=== PATIENT | male | born 1970 | race Caucasian/White ===

== ENCOUNTER 2017-02-08 00:29 | Observation (INO) | payer SELFPAY ==
[2017-02-08 02:05] LABS: Hematocrit 38.5 % (42.0-52.0); Mean Platelet Volume 6.6 fL (7.4-10.4); White Blood Cell (WBC) Count 7.3 thou/uL (4.8-10.8)
[2017-02-08 02:10] LABS: PTT 29.2 SEC (22.9-36.1); Prothrombin Time 13.9 SEC (12.0-14.7)
[2017-02-08] MEDS ORDERED: Fentanyl 100 MCG/2 ML VIAL ONE (02:18)
[2017-02-08 02:19] LABS: #Basophils 0.1 thou/uL (0.0-0.2); #Eosinphils 0.1 thou/uL (0.0-0.7); #Lymphocytes 2.4 thou/uL (1.20-3.40); #Monocytes 0.5 thou/uL (0.11-0.59); #Neutrophils 4.2 thou/uL (1.40-6.50); %Basophils 1.4 % (0.0-1.0); %Eosinophils 1.9 % (0.0-10.0); %Lymphocytes 32.5 % (21.0-51.0); %Monocytes 6.6 % (0.0-10.0); Macrocytosis MODERATE=16-30 cells (100X) (0-5/hpf)
[2017-02-08 02:21] LABS: ALT (SGPT) 24 U/L (8-55); AST (SGOT) 42 U/L (5-34); Alkaline Phosphatase 86 U/L (40-150); Anion Gap 12 mmol/L (10-20); BUN (Urea Nitrogen) 9 mg/dL (8.9-20.6); Bilirubin, Total 0.3 mg/dL (0.2-1.2); Calc. Creatinine Clearance 0 mL/min (70-130); Calcium 8.6 mg/dL (7.8-10.44); Carbon Dioxide 33 mmol/L (22-29); Chloride 97 mmol/L (98-107); Estimated GFR-MDRD 82; Globulin 3.1 g/dL (2.4-3.5); Protein, Total 6.4 g/dL (6.0-8.3)
[2017-02-08] MEDS ORDERED: Ketorolac Tromethamine 30 MG/ML VIAL ONE (03:05)
[2017-02-08 04:10] LABS: Troponin I Less than 0.010 ng/mL (< 0.028)
[2017-02-08] MEDS ORDERED: Acetaminophen 325 MG TAB PO PRN (04:50)
[2017-02-08 06:46] LABS: Hemoglobin A1c 5.7 % (4.0-6.0)
[2017-02-08 06:57] VITALS: BMI 41.3
--- NOTE | 2017-02-08 07:11 | HP ---
PRIMARY CARE PROVIDER: [facility]. CHIEF COMPLAINT: Chest pain. HISTORY OF PRESENT ILLNESS: Mr. Mg is a pleasant 46-year-old gentleman who came to the emergency r oom complaining of chest pain. He was getting out of his car when he slipped on some gravel and fel l. The left side of his chest hit a step. He also reports hitting the left side of his head. He i s unsure if he passed out. He thinks he may have passed out. He denies any nausea or vomiting. In terms of the pain, he reports it as constant, sharp, over the left side of his chest, nonradiatin g, 10/10, improved with fentanyl, worse with movement. He denies any nausea or vomiting. He denies any lightheadedness. REVIEW OF SYSTEMS: The following complete review of systems was negative, unless otherwise mentione d in the HPI or below: CONSTITUTIONAL: Weight loss or gain, sense of well-being, ability to conduct usual activities, exer cise tolerance. SKIN/BREAST: Rash, itching, changes in hair growth or loss, nail changes, breast lumps, tenderness, swelling, nipple discharge. EYES: Vision, double vision, tearing, blind spots, pain. ENT/MOUTH: Headaches (location, time of onset, duration, precipitating factors), vertigo, lighthead edness, injury. Vision, double vision, tearing, blind spots, pain, nose bleeding, colds, obstruction , discharge, dental difficulties, gingival bleeding, dentures, neck stiffness, pain, tenderness, mas ses in thyroid or other areas. CARDIOVASCULAR: Precordial pain, substernal distress, palpitations, syncope, dyspnea on exertion, o rthopnea, nocturnal paroxysmal dyspnea, edema, cyanosis, hypertension, heart murmurs, varicosities, phlebitis, claudication. RESPIRATORY: Pain, shortness of breath, wheezing, stridor, cough, hemoptysis, fever or night sweats . GASTROINTESTINAL: Poor appetite, dysphagia, indigestion, abdominal pain, heartburn, eructation, kimi sea, vomiting, hematemesis, jaundice, constipation, or diarrhea, abnormal stools (himanshu-colored, emmanuel y, bloody, greasy, foul smelling), flatulence, hemorrhoids, recent changes in bowel habits. GENITOURINARY: Urgency, frequency, dysuria, nocturia, hematuria, polyuria, oliguria, unusual (or ch ricky in) color of urine, stones, hesitancy, change in size of stream, dribbling, acute retention or incontinence, libido, potency. MUSCULOSKELETAL: Pain, swelling, redness or heat of muscles or joints, limitation, of motion, muscu lar weakness, atrophy, cramps. NEUROLOGIC/PSYCHIATRIC: Convulsions, paralyses, tremor, incoordination, paresthesias, difficulties with memory of speech, sensory or motor disturbances, or muscular coordination (ataxia, tremor), emo tional problems, anxiety, depression, previous psychiatric care, unusual perceptions, hallucinations . ALLERGY/IMMUNOLOGIC: Skin rash, anemia, bleeding tendency, polydipsia, polyuria, intolerance to hea t or cold. PAST MEDICAL HISTORY: He reports that he was diagnosed with diabetes mellitus in the past, but has been off medications for the last 6 or 8 months because his blood sugars were under control. PAST SURGICAL HISTORY: He had bilateral leg surgery in childhood. He also reports that he needed s urgical intervention for an abdominal bleed in his 20s. SOCIAL HISTORY: Patient chews tobacco. He drinks alcohol twice a month. He denies recreational dr ug use. FAMILY HISTORY: Significant for a colon cancer in his father. ALLERGIES: To PENICILLIN. CURRENT MEDICATIONS: None. PHYSICAL EXAMINATION: GENERAL: Mr. Mg is awake and alert, in obvious distress from the pain. He is obese. VITAL SIGNS: Blood pressure is 101/82 while lying down, 92/68 while sitting up and 83/63 while humphrey ding up. Pulse is 108. He is breathing at rate of 20 and saturating 94% on room air. Temperature is 99 degrees Fahrenheit. EYES: No scleral icterus. No conjunctival pallor. ENT: Moist mucosal membranes, no oropharyngeal erythema or exudates. NECK: Supple, nontender, normal range of movement. Trachea is midline. RESPIRATORY: Accessory muscles of breathing are not active. Chest wall movements are symmetric kim aterally. LUNGS: Clear to auscultation without wheeze, rhonchi or crepitations. CARDIOVASCULAR: S1, S2 are heard, tachycardic and regular. Peripheral pulses palpable. No pericar dial rub, no carotid bruit. ABDOMEN: Soft, distended, nontender, bowel sounds are heard. No hepatomegaly, no splenomegaly. MUSCULOSKELETAL: He has tenderness over the left chest wall. Normal range of movement at all major extremity joints. Power is 5/5 in all 4 extremities. NEUROLOGIC: Cranial nerves II through XII are intact. Deep tendon reflexes 2+. SKIN: Multiple abrasions over his left hand. Ablation over his left lower extremity below the knee . No subcutaneous nodules. LYMPHATIC: No cervical lymphadenopathy. PSYCHIATRIC: Patient appears anxious, oriented to person, place, and time. IMAGING: Mr. Mg's labs and investigations were reviewed. He had an electrocardiogram, which showe d normal sinus rhythm, low voltage QRS complexes. He also had x-rays of the ribs, which reportedly showed old fractures. He had a CT scan of the chest, abdomen, and pelvis, he had several bilateral healed rib fractures on the chest. No other acute findings on CT of the chest, abdomen, or pelvis. LABORATORY INVESTIGATIONS: Show normal white count, hemoglobin 12.9, platelet count 388,000, INR 1. 1, normal sodium, normal potassium, normal creatinine, decreased magnesium of 1.5, elevated AST of 4 2, normal ALT, normal alkaline phosphatase, normal total bilirubin, normal troponin I, and normal TS H. ASSESSMENT AND PLAN: Mr. Mg is a pleasant 46-year-old gentleman who was seen at [facility] on 02/08/2017. His problem list includes: 1. Chest pain: Following fall. He appears to have old healed rib fractures on CT scan of chest. Chest pain is most likely secondary to soft tissue and bone injury, given it is reproducible in natu re. Mr. Mg will be admitted to the hospital and treated with pain medications. 2. Fall: Etiology is unclear. He describes it as a mechanical fall. However, he also appears to have lost consciousness. He will be monitored on telemetry. I am requesting an urgent VQ scan to r ule out pulmonary embolism, also 2D echocardiogram to rule out any valvular abnormalities, etc. Als o, he reports trauma to his head. We will order CT scan of the brain to rule out any intracranial b leed. 3. Liver function test abnormalities: He has isolated elevation of AST, most likely secondary to r habdomyolysis. We will check CK level. 4. Orthostatic hypotension: Etiology is unclear. We will check cortisol level. We will recheck o rthostatic vitals. 5. Diabetes mellitus. He reports that he is no longer diabetic. We will check hemoglobin A1c. Many thanks for allowing me to participate in your patient's care. Please feel free to contact me w ith any questions or concerns. LEVEL OF RISK: Moderate. LEVEL OF COMPLEXITY: Moderate.
--- NOTE | 2017-02-08 07:43 | NM ---
VQ SCAN: HISTORY: 46-year-old male with left-sided chest pain. TECHNIQUE: A ventilation perfusion scan was performed using 7.2 mCi Xenon-133 by inhalation for the ventilation study followed by the intravenous administration of 6.4 mCi technetium-99m MAA for the perfusion sc an. FINDINGS: Homogeneous tracer distribution is seen in the lungs on both ventilation and perfusion images withou t mismatched defects. No tracer retention is seen on the washout phases of the ventilation study. IMPRESSION: Normal exam. POS: [facility]
--- NOTE | 2017-02-08 08:09 | RAD ---
LEFT RIBS FOUR VIEWS: History: Fell, injury to left chest. FINDINGS/IMPRESSION: There is evidence of subtle fracture involving the lateral left fifth and sixth ribs. These fracture s are age indeterminate although there is suggestion of periosteal reaction along the lateral fifth rib. Essentially nondisplaced. The left lung appears clear. POS: [facility]
--- NOTE | 2017-02-08 08:20 | CT ---
PRELIMINARY REPORT/[facility]/EMERGENCY AFTER HOURS PROCEDURE: EXAM: CT Chest With Intravenous Contrast CLINICAL HISTORY: 46 years old, male; Injury or trauma; Fall; Initial encounter; Abrasion; Patient HX: M46 psresented to ed C/O l lower rib pain and luq pain S/P fall from standign around 2100. Pt fell onto corner of s pauline walk striking l upper quadrant and l lower ribs. Significant pain and tenderness with inspiratio n, distant HX of abdominal bleex that required surgical intervention in 20's. TECHNIQUE: Axial computed tomography images of the chest with intravenous contrast. Coronal and sagittal reformatted images were created and reviewed. CONTRAST: 95 mL of ISOVUE 370 administered intravenously. COMPARISON: No relevant prior studies available. FINDINGS: Lungs: No acute findings. No mass. No consolidation. Scattered linear fibrotic changes. Pleural space: No acute findings. No pneumothorax. No significant effusion. Heart: No acute findings. No cardiomegaly. No significant pericardial effusion. Bones/joints: No acute findings. No acute fracture. No dislocation. Several bilateral healed rib fra ctures. Soft tissues: No acute findings. Vasculature: No acute findings. No thoracic aortic aneurysm. Lymph nodes: No acute findings. No enlarged lymph nodes. IMPRESSION: No acute post-traumatic changes. Several bilateral healed rib fractures. EXAM: CT Abdomen and Pelvis With Intravenous Contrast CLINICAL HISTORY: 46 years old, male; Injury or trauma; Fall; Initial encounter; Abrasion; Patient HX: M46 psresented to ed C/O l lower rib pain and luq pain S/P fall from standign around 2100. Pt fell onto corner of s pauline walk striking l upper quadrant and l lower ribs. Significant pain and tenderness with inspiratio n, distant HX of abdominal bleex that required surgical intervention in 20's. TECHNIQUE: Axial computed tomography images of the abdomen and pelvis with intravenous contrast. Coronal and sagittal reformatted images were created and reviewed. CONTRAST: 95 mL of ISOVUE 370 administered intravenously. COMPARISON: No relevant prior studies available. FINDINGS: Lower thorax: No acute findings. ABDOMEN: Liver: No acute findings. No mass. Gallbladder and bile ducts: No acute findings. No calcified stones. No ductal dilation. Pancreas: No acute findings. No mass. No ductal dilation. Spleen: No acute findings. No splenomegaly. Adrenals: No acute findings. No mass. Kidneys and ureters: No acute findings. No solid mass. No hydronephrosis. Benign bilateral upper efraín e cysts. Stomach and bowel: No acute findings. No obstruction. No mucosal thickening. Appendix: The appendix is not visualized. PELVIS: Bladder: No acute findings. No mass. Reproductive: Unremarkable as visualized. ABDOMEN and PELVIS: Intraperitoneal space: No acute findings. No free air. No significant fluid collection. Bones/joints: Chronic degenerative spinal and hip changes without acute fracture or dislocation. Soft tissues: No acute findings. Vasculature: No acute findings. No abdominal aortic aneurysm. Lymph nodes: No acute findings. No enlarged lymph nodes. IMPRESSION: No acute post traumatic changes. Specifically, no splenic contusion or laceration. Thank you for allowing us to participate in the care of your patient. Dictated and Authenticated by: Bret Noel MD 02/08/2017 2:22 AM Central Time ([place] \T\ [place]) FINAL REPORT CT CHEST WITH IV CONTRAST CT ABDOMEN WITH IV CONTRAST CT PELVIS WITH IV CONTRAST CORONAL AND SAGITTAL REFORMATIONS OF THE THORACOLUMBAR SPINE: Date: 02/08/17 FINDINGS/IMPRESSION: I agree with the preliminary report given by Dr. Bret Noel of [facility]. POS: [facility]
[2017-02-08] MEDS: Morphine 2 MG/ML SYRINGE SLOW IVP PRN ×2 (08:31→17:22)
[2017-02-08] MEDS: traMADol HCl 50 MG TAB PO PRN ×2 (08:33→13:46)
[2017-02-08] MEDS ORDERED: FLU VACC QS2017-18 36 mo. & older 0.5 ML SYRINGE IM ONE (09:00)
[2017-02-08 09:47] LABS: Troponin I Less than 0.010 ng/mL (< 0.028)
--- NOTE | 2017-02-08 09:50 | CT ---
CT HEAD WITHOUT CONTRAST: Technique: Multiple axial tomograms were obtained through the head without IV enhancement. History: Syncope. Comparison: 07-07-05 FINDINGS: Ventricles have normal size and position. No mass, hemorrhage, or evidence of infarct. IMPRESSION: No evidence of acute process. POS: [facility]
[2017-02-08] MEDS ORDERED: Magnesium 2 GM/NS 0.9% 50 ML 2 GM in Premix Bag 1 BAG IVPB SCH (10:00)
[2017-02-08 12:57] LABS: Troponin I Less than 0.010 ng/mL (< 0.028)
[2017-02-08] MEDS ORDERED: ISOVUE-370 76%-LOCM 1 ML ONE (13:24)
--- NOTE | 2017-02-08 13:26 | DIS ---
PRIMARY CARE PHYSICIAN: [facility] DATE OF ADMISSION: 02/08/2017 at 0419 DATE OF DISCHARGE: 02/08/2017 at 12:21 p.m. The patient was here for 8 hours and 2 minutes. DISCHARGE DIAGNOSES: 1. Noncardiac chest pain, musculoskeletal in nature. 2. Orthostatic hypotension secondary to fentanyl. 3. Mechanical fall. 4. Uncontrolled pain. 5. Hypomagnesemia. CONSULTATIONS: None. PROCEDURES: 1. CT of the abdomen and pelvis. 2. A 2D echocardiogram. 3. Ventilation perfusion scan of the lungs. HISTORY: Mr. Mg is a 46-year-old white male with obesity who came to the emergency department with left lower lateral chest pain, left upper quadrant pain after falling. The patient fell from a sta nding position around 9:00 p.m. the night of presentation, and fell in the corner of the sidewalk st riking his head on the upper quadrant. The patient had no loss of consciousness prior to the fall a nd had no presyncope. He thinks he might have lost consciousness after he hit. HOSPITAL COURSE: The patient was seen and evaluated by Dr. Watson. He was placed in observation in the hospital. He had serial cardiac biomarkers that were completely negative. He has CT of his bra in that was negative for intracranial bleed, and had a VQ scan that was negative or low probability for PE. CT scan in the ER of the abdomen and pelvis showed several bilateral healed rib fractures a nd a chest x-ray had mentioned left-sided rib fractures with periosteal reaction likely older rather than newer. His magnesium level on admission was low at 1.5, he was given 1 gram magnesium and rep eat was still 1.5, so when I took over this morning, I gave him another 2 grams of magnesium. Repea t levels were normal at 1.7. He underwent echocardiogram that showed it was technically difficult. It showed a normal ejection f raction, but did not give a number and possible diastolic dysfunction, but otherwise appeared fairly normal. The patient was subsequently discharged home with outpatient followup. PHYSICAL EXAMINATION: The patient was seen and examined on the day of discharge. Discharge plan an d dismissal were discussed with the patient face to face at the bedside. DISCHARGE MEDICATIONS: None. He is not on any medicines. He can use Tylenol and ibuprofen for elmer n. FOLLOWUP: Followup appointment with the PCP within a week. DISCHARGE CONDITION: Stable. DISPOSITION: He is being discharged home via private vehicle. INSTRUCTIONS: The patient was instructed to return to the emergency department if he had any increa se in symptoms.
[2017-02-08 16:07] VITALS: TEMP 97.4
[2017-02-08 20:35] VITALS: BP 174/95
--- NOTE | 2017-02-17 12:21 | EKG ---
Test Reason : Blood Pressure : / mmHG Vent. Rate : 093 BPM Atrial Rate : 093 BPM P-R Int : 148 ms QRS Dur : 080 ms QT Int : 380 ms P-R-T Axes : 061 000 079 degrees QTc Int : 472 ms Normal sinus rhythm Low voltage QRS Cannot rule out Anterior infarct , age undetermined No STEMI Abnormal ECG Confirmed by IRMA CARRERO ([id number]), book or script editor CARLOS PATIÑO ([id number]) on 02/17/2017 12:20:52 PM Referred By: Confirmed By:IRMA CARRERO
== END 2017-02-08 23:35 | disposition home or self-care (01) ==
LOC: ERS 00:29 → 2SW 05:15
PROVIDERS: ADMIT Internal Medicine; ATTEND Internal Medicine
DX: R07.89 Other chest pain (principal); I95.2 Hypotension due to drugs; T40.4X5A Adverse effect of other synthetic narcotics, initial encounter; E83.42 Hypomagnesemia; E11.9 Type 2 diabetes mellitus without complications; E66.9 Obesity, unspecified; F17.220 Nicotine dependence, chewing tobacco, uncomplicated; R94.5 Abnormal results of liver function studies; W01.198A Fall on same level from slipping, tripping and stumbling with subsequent striking against other object, initial encounter; Y92.480 Sidewalk as the place of occurrence of the external cause; Z68.41 Body mass index [BMI] 40.0-44.9, adult; Z88.0 Allergy status to penicillin; Z98.890 Other specified postprocedural states; Z80.0 Family history of malignant neoplasm of digestive organs
CPT/HCPCS: 36415; 70450; 71260; 74177; 78582; 80053; 82533; 82553; 83036; 83735; 84443; 84484; 85025; 85610; 85730; 86850; 86900; 86901; 93005; 93306; 96361; 96365; 96375; 96376; A9540; A9558; G0378; J1885; J2270; J3010; J3475; J7050

== ENCOUNTER 2018-01-07 12:44 | Inpatient (IN) | payer SELFPAY, OTHER ==
[2018-01-07 13:49] LABS: #Basophils 0.1 thou/uL (0.0-0.2); #Eosinphils 0.1 thou/uL (0.0-0.7); #Lymphocytes 1.4 thou/uL (1.20-3.40); #Monocytes 0.5 thou/uL (0.11-0.59); #Neutrophils 4.7 thou/uL (1.40-6.50); %Eosinophils 1.9 % (0.0-10.0); %Lymphocytes 20.9 % (21.0-51.0); %Monocytes 6.7 % (0.0-10.0); %Neutrophils 69.6 % (42.0-75.0); Hemoglobin 13.5 g/dL (14.0-18.0); Mean Corpuscular HGB CONC 31.8 g/dL (32.0-36.0); Mean Corpuscular Hemoglobin 32.2 pg (27.0-31.0); Mean Platelet Volume 7.6 fL (7.4-10.4); Platelet Count 233 thou/uL (130-400); RBC Distribution Width 13.9 % (11.5-14.5); Red Blood Cell (RBC) Count 4.18 mill/uL (4.70-6.10); White Blood Cell (WBC) Count 6.7 thou/uL (4.8-10.8)
[2018-01-07 14:17] LABS: ALT (SGPT) 20 U/L (8-55); AST (SGOT) 48 U/L (5-34); Albumin 3.4 g/dL (3.5-5.0); Alkaline Phosphatase 98 U/L (40-150); Anion Gap 9 mmol/L (10-20); BUN (Urea Nitrogen) 6 mg/dL (8.9-20.6); Bilirubin, Total 0.6 mg/dL (0.2-1.2); Calc. Creatinine Clearance 0 mL/min (70-130); Calcium 8.5 mg/dL (7.8-10.44); Carbon Dioxide 29 mmol/L (22-29); Chloride 102 mmol/L (98-107); Estimated GFR-MDRD Greater than 90; Globulin 3.1 g/dL (2.4-3.5); Glucose 237 mg/dL (70-105); Potassium 3.6 mmol/L (3.5-5.1); Protein, Total 6.5 g/dL (6.0-8.3); Sodium 136 mmol/L (136-145)
[2018-01-07 15:02] LABS: Bilirubin Negative (Negative); Blood, Urine Negative (Negative); Clarity CLEAR (Clear); Glucose, Urine (Dipstick) Negative (Negative); Leukocyte Trace (Negative); Nitrite Negative (Negative); Protein, Urine (Dipstick) Negative (Neg-Trace)
[2018-01-07 15:07] LABS: Bacteria/HPF None Seen HPF (None Seen); Hyaline Casts/LPF 0-3 HYALINE CAST LPF (0-3 Hyaline); RBC/HPF 0-3 HPF (0-3); Squamous Epithelial None Seen HPF (0-3); WBC/HPF 0-3 HPF (0-3)
[2018-01-07] MEDS ORDERED: HYDROcodone/Acetaminophen 5/325 mg Tablet ONE (15:22)
[2018-01-07 16:09] LABS: CKMB 1.3 ng/mL (0-6.6); Troponin I Less than 0.010 ng/mL (< 0.028)
[2018-01-07] MEDS ORDERED: Furosemide 40 MG/4 ML VIAL ONE (16:20)
[2018-01-07] MEDS ORDERED: Ketorolac Tromethamine 30 MG/ML VIAL ONE (16:26)
[2018-01-07] MEDS ORDERED: Clindamycin/D5W 900 mg/50 ml Premix Bag ONE (17:55)
--- NOTE | 2018-01-07 17:58 | RAD ---
PA AND LATERAL CHEST: INDICATIONS: Lower extremity edema. COMPARISON: 05/05/2008 FINDINGS: The lungs are clear. The cardiomediastinal silhouette is within normal limits. No acute osseous abn ormality is evident. IMPRESSION: No acute cardiopulmonary abnormality. POS: [facility]
[2018-01-07] MEDS ORDERED: Clindamycin/D5W 900 MG in Premix Bag 1 BAG IVPB SCH (18:00)
--- NOTE | 2018-01-07 20:28 | ULT ---
BILATERAL LOWER EXTREMITY VENOUS ULTRASOUND WITH DOPPLER: HISTORY: Bilateral lower extremity edema, swelling, and erythema. COMPARISON: None. TECHNIQUE: Avila-scale, color-flow, and Doppler imaging with spectral wave-form analysis was performed of the lef t and right lower extremity venous system. FINDINGS: Bilaterally, there is compressibility, presence of flow, and augmentation in the common femoral vein, femoral vein, and popliteal vein. There is flow in the bilateral greater saphenous vein, popliteal vein, and posterior tibial vein. IMPRESSION: No thrombus of the left and right lower extremity deep venous system. POS: [facility]
[2018-01-07] MEDS ORDERED: Ondansetron ODT 4 MG TAB SL PRN (20:41)
[2018-01-07] MEDS ORDERED: Ondansetron HCl/PF 4 MG/2 ML Vial IVP PRN (20:41)
[2018-01-07] MEDS ORDERED: Acetaminophen 500 MG TAB PO SCH (21:30)
[2018-01-07 22:17] LABS: INR-International Normal Ratio 1.2; PTT 31.7 SEC (22.9-36.1); Prothrombin Time 15.3 SEC (12.0-14.7)
[2018-01-07 22:18] LABS: D-Dimer Test 0.57 *mcg/mL (0.27-0.43)
[2018-01-07 22:27] LABS: Lactic Acid 1.6 mmol/L (0.5-2.2)
--- NOTE | 2018-01-08 00:03 | PDOC.FPRHP ---
- History of Present Illness Chief Complaint: LE swelling History of Present Illness: Pt presents to the ED today with b/l LE swelling for the past week. before today it was better with elevation, now the swelling is present regardless of intervention. Associated with pain, redness, and warmth to the touch. He reports reduced sensation in his LE, and walking flat footed. He denies any fever/chills, chest pain, shortness of breath, palpitations or syncope. He has experienced LE swelling in the past but never the redness or pain like today. He reports that in the past he has had diabetes but that it was now cured. ED Course: CBC, CMP, Coag, BNP (indeterminate), LE doppler, trop/ckmb, glucose 237, CXR - Allergies/Adverse Reactions Allergies Allergy/AdvReac Type Severity Reaction Status Date / Time Penicillins Allergy Verified 01/07/18 19:38 - Home Medications Medication Instructions Recorded Confirmed Type Multivitamin [Daily Multiple 1 each PO DAILY 01/07/18 01/07/18 History Vitamin] - History PMHx:DMII PSHx: none FHx: HTN Social: chewing tobacco - Review of Systems General: denies: fever/chills, weight/appetite/sleep changes Eyes: denies: eye pain, vision changes ENT: denies: rhinorrhea Respiratory: denies: cough, shortness of breath Cardiovascular: reports: edema. denies: chest pain, palpitation, orthopnea Gastrointestinal: denies: nausea, vomiting, diarrhea Genitourinary: denies: incontinence, polyuria Skin: denies: rashes, lesions Musculoskeletal: reports: pain, tenderness, swelling Neurological: denies: numbness, seizure, weakness - Vital signs BP: [146/81] HR: [80] RR: [18] Tmax: [97.7] Pox: [95]% on [RA] Wt: [163kg] - Physical Exam Constitutional: NAD, awake, alert and oriented HEENT: normocephalic and atraumatic, conjunctiva clear, grossly normal vision, grossly normal hearing Neck: supple, trachea midline Chest: no-tender to palpation, no lesions Heart: RRR, normal S1/S2, no murmurs/rubs/gallops, other (b/l LE pitting edema extending to knee, erythema, tender to palpation, pulses and ROM intact with pain) Lungs: CTAB, no respiratory distress, good air movement Abdomen: soft, non-tender Musculoskeletal: normal structure, ROM grossly normal Neurological: no focal deficit, CN II-XII intact Skin: no rash/lesions, good turgor Heme/Lymphatic: no unusual bruising or bleeding, no petechia FMR H&P: Results - Labs Result Diagrams: 01/07/18 13:38 01/07/18 13:38 Lab results: WBC 6.7 thou/uL (4.8-10.8) 01/07/18 13:38 Hgb 13.5 g/dL (14.0-18.0) L 01/07/18 13:38 Hct 42.4 % (42.0-52.0) 01/07/18 13:38 MCV 101.0 fL (78.0-98.0) H 01/07/18 13:38 Plt Count 233 thou/uL (130-400) 01/07/18 13:38 Neutrophils % 69.6 % (42.0-75.0) 01/07/18 13:38 ESR Westergren 21 mm/hr (Less than 15) 01/07/18 15:34 Sodium 136 mmol/L (136-145) 01/07/18 13:38 Potassium 3.6 mmol/L (3.5-5.1) 01/07/18 13:38 Chloride 102 mmol/L (98-107) 01/07/18 13:38 Carbon Dioxide 29 mmol/L (22-29) 01/07/18 13:38 BUN 6 mg/dL (8.9-20.6) L 01/07/18 13:38 Creatinine 0.78 mg/dL (0.6-1.3) 01/07/18 13:38 Glucose 237 mg/dL (70-105) H 01/07/18 13:38 Lactic Acid 1.6 mmol/L (0.5-2.2) 01/07/18 21:57 Calcium 8.5 mg/dL (7.8-10.44) 01/07/18 13:38 Total Bilirubin 0.6 mg/dL (0.2-1.2) 01/07/18 13:38 AST 48 U/L (5-34) H 01/07/18 13:38 ALT 20 U/L (8-55) 01/07/18 13:38 Alkaline Phosphatase 98 U/L (40-150) 01/07/18 13:38 Creatine Kinase 36 U/L (30-200) 01/07/18 13:38 CK-MB (CK-2) 1.3 ng/mL (0-6.6) 01/07/18 13:38 C-Reactive Protein 2.11 mg/dL (= or < 0.5) H 01/07/18 15:34 B-Natriuretic Peptide 228.8 pg/mL (0-100) H 01/07/18 13:38 Serum Total Protein 6.5 g/dL (6.0-8.3) 01/07/18 13:38 Albumin 3.4 g/dL (3.5-5.0) L 01/07/18 13:38 Urine Ketones Negative mg/dL (Negative) 01/07/18 14:32 Urine Blood Negative (Negative) 01/07/18 14:32 Urine Nitrite Negative (Negative) 01/07/18 14:32 Ur Leukocyte Esterase Trace (Negative) H 01/07/18 14:32 Urine RBC 0-3 HPF (0-3) 01/07/18 14:32 Urine WBC 0-3 HPF (0-3) 01/07/18 14:32 Ur Squamous Epith Cells None Seen HPF (0-3) 01/07/18 14:32 Urine Bacteria None Seen HPF (None Seen) 01/07/18 14:32 FMR H&P: A/P - Problem List (1) Lower extremity edema Current Visit: Yes Status: Acute Code(s): R60.0 - LOCALIZED EDEMA (2) Elevated transaminase level Current Visit: Yes Status: Acute Code(s): R74.0 - NONSPEC ELEV OF LEVELS OF TRANSAMNS & LACTIC ACID DEHYDRGNSE (3) Elevated brain natriuretic peptide (BNP) level Current Visit: Yes Status: Acute Code(s): R79.89 - OTHER SPECIFIED ABNORMAL FINDINGS OF BLOOD CHEMISTRY (4) Diabetes mellitus type 2 in obese Current Visit: Yes Status: Acute Code(s): E11.69 - TYPE 2 DIABETES MELLITUS WITH OTHER SPECIFIED COMPLICATION; E66.9 - OBESITY, UNSPECIFIED - Plan 1. lower extremity edema - venous stasis dermatitis vs cellulitis vs charcot foot - clot unlikely with negative venous US - clindamycin to cover for cellulitis - possible heart failure causing venous stasis - x-ray of feet to evaluate for charcot foot - re-evaluate edema and erythema in AM for improvement on Abx 2. Elevated BNP - intederminate level - EKG not suspicious for recent HI - TTE to evaluate for structural abnormality - consider heart failure and cardiology consult pending echo results 3. Elevated transaminases - most likely part of larger metabolic syndrome picture - repeat CMP 4. Hx of DMII - not cured - possible charcot foot - mild sliding scale Disposition/LOS: most likely venous stasis dermatitis, evaluate for heart failure, monitor on medical floor FMR H&P: Upper Level - Pertinent history 47M presents with 1 week of leg swelling. It worsens yesterday, associated with redness and sharp pain, originating from his feet. He has history of diabetes, says he was cured and stopped taking diabetic medication. He does have long standing neuropathic pain in his feet. He has not tried anything to help. Being on his foot exacerbate the pain. He has no other medical issue as far as he know. - Pertinent findings Gen: Alert, grossly oriented CV: RRR with no apparent m/g/r Resp: CTA bilaterally Ext: Both LE has decreased hair, shiny appearance, 2+ pitting edema, decrease sensation bilaterally. Erythema in foot with diffuse spread to approximately mid sanchez. No skin break, no area of discharge. Very faint erythema without warmth. Mild pain on palpation. - Plan Date/Time: 01/08/18 0000 I, [Velasquez Campos], have evaluated this patient and agree with findings/plan as outlined by regulatory intern resident. Pertinent changes/additions are listed here. 1. LE edema - Consider stasis dermatitis, cellulitis, charcot foot and heart failure - Unlikely HF with indeterminate BNP, denies dyspnea on laying flat. Will get echo for definitive result - Possible stasis dermatitis based on appearance. Consider compression stocking - Charcot foot. Possible with hx of diabetes and what appear to be diabetic neuroapthy. Order weight bearing xray of both feet. - Cellulitis: Obtain procal. Will treat with clindamycin. 2. DM2 hx - SSI. May still have DM2, so obtain A1c 3. Elevated LFT - Elevated AST, may consider fatty liver. But asymptomatic, so recommend outpatient follow up.
[2018-01-08] MEDS ORDERED: Dextrose 5% in Water 1,000 ML IV PRN (00:35)
[2018-01-08] MEDS ORDERED: Dextrose 50% Abboject 50 ML SYRINGE SLOW IVP PRN (00:35)
[2018-01-08] MEDS ORDERED: HumaLOG 300 UNITS/3 ML VIAL SC PRN ×2 (00:35)
[2018-01-08] MEDS: Clindamycin/D5W 900 MG in Premix Bag 1 BAG IVPB SCH ×3 (00:55→17:51)
[2018-01-08] MEDS: traMADol HCl 50 MG TAB PO PRN ×3 (00:56→19:45)
[2018-01-08 05:01] LABS: #Basophils 0.1 thou/uL (0.0-0.2); #Eosinphils 0.3 thou/uL (0.0-0.7); #Lymphocytes 1.6 thou/uL (1.20-3.40); #Monocytes 0.4 thou/uL (0.11-0.59); #Neutrophils 4.2 thou/uL (1.40-6.50); %Eosinophils 4.3 % (0.0-10.0); %Lymphocytes 24.4 % (21.0-51.0); %Monocytes 6.5 % (0.0-10.0); %Neutrophils 63.8 % (42.0-75.0); Mean Corpuscular HGB CONC 31.9 g/dL (32.0-36.0); Mean Corpuscular Hemoglobin 32.7 pg (27.0-31.0); Mean Platelet Volume 8.3 fL (7.4-10.4); Platelet Count 226 thou/uL (130-400); RBC Distribution Width 13.9 % (11.5-14.5); Red Blood Cell (RBC) Count 3.99 mill/uL (4.70-6.10); White Blood Cell (WBC) Count 6.6 thou/uL (4.8-10.8)
[2018-01-08 05:07] LABS: Hemoglobin A1c 6.6 % (4.0-6.0)
[2018-01-08 05:19] LABS: ALT (SGPT) 17 U/L (8-55); AST (SGOT) 52 U/L (5-34); Albumin 3.1 g/dL (3.5-5.0); Alkaline Phosphatase 92 U/L (40-150); Anion Gap 12 mmol/L (10-20); BUN (Urea Nitrogen) 9 mg/dL (8.9-20.6); Bilirubin, Total 0.7 mg/dL (0.2-1.2); Calc. Creatinine Clearance 271 mL/min (70-130); Calcium 8.8 mg/dL (7.8-10.44); Carbon Dioxide 29 mmol/L (22-29); Chloride 101 mmol/L (98-107); Estimated GFR-MDRD Greater than 90; Glucose 163 mg/dL (70-105); Potassium 3.8 mmol/L (3.5-5.1); Protein, Total 6.1 g/dL (6.0-8.3); Sodium 138 mmol/L (136-145)
--- NOTE | 2018-01-08 06:55 | PDOC.FM ---
- Subjective Subjective: No overnight events. Pt reports great improvement in lower leg edema, but does endorse this is typical after sleeping with legs up. He endorses SOB for the past week with exertion. Also dizziness with position changes. Denies fevers, chills, SOB, chest pain. No other concerns. - Objective MAR Reviewed: Yes Vital Signs & Weight: Vital Signs (12 hours) Temp Pulse Resp BP Pulse Ox 01/08/18 05:07 158/75 H 01/08/18 04:26 97.4 F L 78 18 161/97 H 91 L 01/08/18 00:20 97.7 F 80 18 146/81 H 95 01/07/18 20:00 96 01/07/18 19:30 97.9 F 79 20 130/85 96 Weight Weight 163.112 kg I&O: 01/06/18 01/07/18 01/08/18 06:59 06:59 06:59 Intake Total 625 Balance 625 Result Diagrams: 01/08/18 03:55 01/08/18 03:55 <Rayna Gan - Last Filed: 01/08/18 10:30> - Objective Vital Signs & Weight: Vital Signs (12 hours) Temp Pulse Resp BP Pulse Ox 01/08/18 12:34 97.4 F L 80 20 133/86 92 L 01/08/18 08:54 97.3 F L 75 20 123/76 97 01/08/18 08:00 97 Weight Weight 163.112 kg I&O: 01/07/18 01/08/18 01/09/18 06:59 06:59 06:59 Intake Total 625 480 Balance 625 480 Result Diagrams: 01/08/18 03:55 01/08/18 03:55 <Debby Eduardo - Last Filed: 01/08/18 17:19> Phys Exam - Physical Examination Constitutional: NAD Neck: supple expiratory wheezing in bases bilaterally distant due to body habitus Gastrointestinal: soft, non-tender, positive bowel sounds Musculoskeletal: pulses present, edema present 2+ pitting edema to knee bilaterally Psychiatric: normal affect Skin: cap refill <2 seconds Deviation from normal: Dystrophic toenails, and dark erythema possible venous stasis of LE b/l <Rayna Gan - Last Filed: 01/08/18 10:30> Dx/Plan (1) Diabetes mellitus type 2 in obese Code(s): E11.69 - TYPE 2 DIABETES MELLITUS WITH OTHER SPECIFIED COMPLICATION; E66.9 - OBESITY, UNSPECIFIED Status: Acute (2) Elevated brain natriuretic peptide (BNP) level Code(s): R79.89 - OTHER SPECIFIED ABNORMAL FINDINGS OF BLOOD CHEMISTRY Status : Acute (3) Elevated transaminase level Code(s): R74.0 - NONSPEC ELEV OF LEVELS OF TRANSAMNS & LACTIC ACID DEHYDRGNSE Status: Acute (4) Lower extremity edema Code(s): R60.0 - LOCALIZED EDEMA Status: Acute (5) Fall Code(s): W19.XXXA - UNSPECIFIED FALL, INITIAL ENCOUNTER Status: Acute (6) Musculoskeletal chest pain Code(s): R07.89 - OTHER CHEST PAIN Status: Acute (7) Risk for falls Code(s): Z91.81 - HISTORY OF FALLING Status: Acute - Plan Plan: Lower extremity edema - Venous stasis dermatitis vs cellulitis vs charcot foot vs CHF - Venous US neg- unlikely DVT - D/c Clindamycin, procalcitonin neg- unlikely cellulitis - CXR no acute cardiopulm process - Possible heart failure causing venous stasis, BNP elevated and 1 week of SOB - Echo today - X-ray of feet to evaluate for charcot foot pending read - Consider compression stockings, elevate legs often HTN - Will start HCTZ 12.5 Elevated BNP - Intederminate level - EKG not suspicious for recent ID - Echo today Elevated transaminases - Asymptomatic - Consider Fatty liver - Recommend outpt workup Hx of DMII - HgbA1c: 6.6% - mild SSI - ACHS accuchecks Code Status: FULL DVT ppx: Lovenox <Rayna Gan - Last Filed: 01/08/18 10:30> Attending Addendum - Attending Addendum Date/Time: 01/08/18 9688 I personally evaluated the patient and discussed the management with Dr. Gan. I agree with the History, Examination, Assessment and Plan documented above with any addition or exceptions noted below. REdness is improved. Will give lasix to help with le edema. Echo pending. <Debby Eduardo - Last Filed: 01/08/18 17:19>
[2018-01-08] MEDS: Enoxaparin Sodium 40 MG/0.4 ML SYRINGE SC SCH (08:35)
[2018-01-08] MEDS: Gabapentin 300 MG CAP PO SCH ×3 (08:38→19:45)
--- NOTE | 2018-01-08 09:23 | RAD ---
RIGHT FOOT THREE VIEWS: History: Foot pain and swelling. Comparison: 08-17-16 FINDINGS: Soft tissue swelling is seen on the dorsum of the foot. Arthritic change of the first metatarsal phal angeal joint are seen. Also arthritic changes along the base of the metatarsals. Calcaneal spur at th e insertion of the Achilles tendon is noted. Old injury to the fifth metatarsal is again demonstrated . IMPRESSION: Soft tissue swelling and arthritic changes of the foot, overall fairly stable exam. POS: SCOUT
[2018-01-08] MEDS: Hydrochlorothiazide 25 MG TAB PO SCH (09:32)
--- NOTE | 2018-01-08 10:29 | RAD ---
LEFT FOOT THREE VIEWS: INDICATIONS: History of Charcot foot and swelling. COMPARISON: 08/25/2009 FINDINGS: There is healed fracture deformity involving the fourth digit and fifth digit, proximal phalanges. T here is scattered osteoarthrosis. No acute fracture is evident. Degenerative changes of the mid gregorio t have mildly progressed. Soft tissue swelling of the ankle and foot is much more prominent than on the comparison exam. Lisfranc alignment is preserved. IMPRESSION: 1. No acute fracture or subluxation. 2. Diffuse soft tissue swelling of the left foot. POS: SCOUT
[2018-01-08 10:40] LABS: Factor VIII Test 302.8 % ACTIVE (56-157)
[2018-01-08 10:56] LABS: HEX PHOS LA Tube 1 60.5 SEC; HEX PHOS LA Tube 2 58.5 SEC; Protein C Activity 63 % (78-152)
[2018-01-08] MEDS ORDERED: Furosemide 20 MG/2 ML VIAL SLOW IVP SCH (11:30)
[2018-01-08] MEDS ORDERED: HYDROcodone/Acetaminophen 5/325 mg Tablet PO SCH (11:45)
[2018-01-08] MEDS ORDERED: Sulfameth/Trimethoprim DS 800-160mg TAB PO SCH ×2 (12:15→21:00)
[2018-01-08] MEDS: Sulfameth/Trimethoprim DS 800-160mg TAB PO SCH (19:45)
[2018-01-09] MEDS: Clindamycin/D5W 900 MG in Premix Bag 1 BAG IVPB SCH (01:58)
--- NOTE | 2018-01-09 06:17 | PDOC.FM ---
- Subjective Subjective: No complaints. Reports swelling has greatly improved. Has been able to get out of bed, sitting up in chair most of the day. Shooting leg pain is still present and really bothersome this AM but reports it mostly subsided with Gabapentin yesterday. Denies CP, SOB. - Objective MAR Reviewed: Yes Vital Signs & Weight: Vital Signs (12 hours) Temp Pulse Resp BP Pulse Ox 01/08/18 22:41 142/78 H 01/08/18 19:54 97.9 F 79 21 H 141/102 H 93 L 01/08/18 18:33 97.6 F 71 20 141/89 H 94 L Weight Weight 163.112 kg I&O: 01/07/18 01/08/18 01/09/18 06:59 06:59 06:59 Intake Total 625 820 Output Total 1460 Balance 625 -640 Result Diagrams: 01/08/18 03:55 01/08/18 03:55 <Rayna Gan - Last Filed: 01/09/18 09:59> - Objective Vital Signs & Weight: Vital Signs (12 hours) Temp Pulse Resp BP Pulse Ox 01/09/18 08:57 97.7 F 80 16 129/86 94 L Weight Weight 160.6 kg I&O: 01/08/18 01/09/18 01/10/18 06:59 06:59 06:59 Intake Total 625 820 440 Output Total 1460 Balance 625 -640 440 Result Diagrams: 01/08/18 03:55 01/08/18 03:55 <Debby Eduardo - Last Filed: 01/09/18 17:21> Phys Exam - Physical Examination Constitutional: NAD Respiratory: no wheezing, clear to auscultation bilateral distant heart sounds due to body habitus Gastrointestinal: soft, non-tender, positive bowel sounds Musculoskeletal: edema present +1 pitting 3/[address] up shins leg twitching pt attributes to shooting pain Psychiatric: normal affect, A&O x 3 <Rayna Gan - Last Filed: 01/09/18 09:59> Dx/Plan (1) Diabetes mellitus type 2 in obese Code(s): E11.69 - TYPE 2 DIABETES MELLITUS WITH OTHER SPECIFIED COMPLICATION; E66.9 - OBESITY, UNSPECIFIED Status: Acute (2) Elevated brain natriuretic peptide (BNP) level Code(s): R79.89 - OTHER SPECIFIED ABNORMAL FINDINGS OF BLOOD CHEMISTRY Status : Acute (3) Elevated transaminase level Code(s): R74.0 - NONSPEC ELEV OF LEVELS OF TRANSAMNS & LACTIC ACID DEHYDRGNSE Status: Acute (4) Lower extremity edema Code(s): R60.0 - LOCALIZED EDEMA Status: Acute (5) Fall Code(s): W19.XXXA - UNSPECIFIED FALL, INITIAL ENCOUNTER Status: Acute (6) Musculoskeletal chest pain Code(s): R07.89 - OTHER CHEST PAIN Status: Acute (7) Risk for falls Code(s): Z91.81 - HISTORY OF FALLING Status: Acute - Plan Plan: Lower extremity edema - Venous stasis dermatitis vs cellulitis vs CHF - Venous US neg- unlikely DVT - procalcitonin neg - CXR no acute cardiopulm process - Possible heart failure causing venous stasis, BNP elevated and 1 week of SOB - Echo today - Will treat with 7 days of Bactrim although low suspicion for cellulitis - Consider compression stockings, elevate legs often - Repeat IV lasix 20mg, good response yesterday Bilateral Leg Pain - Likely neuropathic pain, has been responding to Gabapentin well - Patient will likely benefit from increased dose, Will increase Gabapentin from 300mg to 400mg TID Elevated D-Dimer - Asymptomatic - Coag studies show pt may be hypercoagulable - Will discuss with pt getting a CTA today to eval for PE HTN - Continue HCTZ 12.5 Elevated BNP - Indeterminate level - EKG not suspicious for recent MN - Echo today Elevated transaminases - Asymptomatic - Consider Fatty liver - Recommend outpt workup Hx of DMII - HgbA1c: 6.6% - mild SSI - ACHS accuchecks Code Status: FULL DVT ppx: Lovenox <Rayna Gan - Last Filed: 01/09/18 09:59> Attending Addendum - Attending Addendum Date/Time: 01/09/18 1720 I personally evaluated the patient and discussed the management with Dr. Gan. I agree with the History, Examination, Assessment and Plan documented above with any addition or exceptions noted below. Edema is improved with lasix. Will continue today. Adjusting gabapentin for sharp pain in bilateral heels. Echo is still pending. <Debby Eduardo - Last Filed: 01/09/18 17:21>
[2018-01-09] MEDS ORDERED: Furosemide 20 MG/2 ML VIAL SLOW IVP SCH (07:45)
[2018-01-09] MEDS ORDERED: Gabapentin 400 MG CAP PO SCH (08:00)
[2018-01-09] MEDS: Hydrochlorothiazide 25 MG TAB PO SCH (08:10)
[2018-01-09] MEDS: Enoxaparin Sodium 40 MG/0.4 ML SYRINGE SC SCH (08:10)
[2018-01-09] MEDS: traMADol HCl 50 MG TAB PO PRN ×2 (08:11→18:33)
[2018-01-09] MEDS: Gabapentin 400 MG CAP PO SCH ×3 (08:11→20:13)
[2018-01-09] MEDS: Sulfameth/Trimethoprim DS 800-160mg TAB PO SCH ×2 (08:11→20:14)
[2018-01-09] MEDS ORDERED: HYDROcodone/Acetaminophen 5/325 mg Tablet PO SCH (10:45)
[2018-01-09 13:10] VITALS: BMI 44.2
--- NOTE | 2018-01-09 13:39 | CT ---
CT ANGIOGRAM THORAX WITH IV CONTRAST AND 3D RECONSTRUCTIONS: 01/09/2018 HISTORY: Elevated D-dimer, hypercoagulable. Swelling in the bilateral lower extremities. COMPARISON: None available. FINDINGS: There is suggestion of a very tiny filling defect seen within the anterior aspect of the proximal seg mental left lower lobe pulmonary artery. This could represent a very tiny filling defect related to pulmonary embolus, of indeterminate age. No additional filling defects are seen to suggest additiona l pulmonary emboli. There is mild motion artifact in this region, and this could potentially be john factual, but a tiny pulmonary embolus should be considered. The thoracic aorta is normal in caliber without evidence of an aortic dissection. Linear densities seen in the superior segment, left lower lobe, with associated pleural thickening, l ikely related to mild scarring. Linear peripheral densities are seen at each lung base, which could be related to areas of mild scarring or minimal interstitial thickening, related to minimal edema. T here is no pleural effusion seen. No discrete pulmonary nodule or mass is identified. A remote right-sided rib fractures are seen. There is no evidence of lymphadenopathy. The visualized upper abdomen demonstrates a normal CT appearance for the phase of imaging. IMPRESSION: 1. Questionable tiny eccentric filling defect within an anterior proximal segmental left lower l obe pulmonary artery. This could potentially be artifactual, but a tiny indeterminate age pulmonary embolus is not excluded. However, there are no additional filling defects to suggest additional pulm onary emboli, and this is likely of no clinical significance. 2. Minimal peripheral interstitial thickening at each lung base, which is nonspecific. This cou ld be related to mild chronic lung changes or slight interstitial edema. POS: SCOUT
[2018-01-09] MEDS ORDERED: ISOVUE-370 76%-LOCM 1 ML ONE (14:07)
[2018-01-09 14:29] LABS: Cardiolipin IgA Ab 2.4 APL-U/mL (<14 Negative); Cardiolipin IgG Ab Less than 0.5 GPL-U/mL (<10 Negative); Cardiolipin IgM Ab 1.4 MPL-U/mL (<10 Negative); EliA APS New Method **** NEW METHOD ****
[2018-01-10] MEDS ORDERED: HYDROcodone/Acetaminophen 5/325 mg Tablet PO SCH (04:00)
[2018-01-10] MEDS ORDERED: Morphine 2 MG/ML SYRINGE SLOW IVP SCH (04:00)
--- NOTE | 2018-01-10 05:41 | PDOC.FM ---
- Subjective Subjective: Last night while using the toilet he landed wrong on his foot and hyperextended his right 5th toe resulting in a significant skin lac. Pt is in a lot of pain due to this. Reports improvement in leg swelling and shooting leg pain. Denies SOB and chest pain. - Objective MAR Reviewed: Yes Vital Signs & Weight: Vital Signs (12 hours) Temp Pulse Resp BP Pulse Ox 01/09/18 20:00 97.6 F 72 20 134/84 94 L Weight Weight 160.6 kg I&O: 01/08/18 01/09/18 01/10/18 06:59 06:59 06:59 Intake Total 774 158 1727 Output Total 1460 1250 Balance 625 -640 - Result Diagrams: 01/08/18 03:55 01/08/18 03:55 <Rayna Gan - Last Filed: 01/10/18 09:57> - Objective Vital Signs & Weight: Vital Signs (12 hours) Temp Pulse Resp BP Pulse Ox 01/10/18 12:00 97.8 F 76 20 142/76 H 92 L 01/10/18 07:58 97.6 F 72 20 119/83 94 L 01/10/18 07:50 94 L Weight Weight 160.6 kg I&O: 01/09/18 01/10/18 01/11/18 06:59 06:59 06:59 Intake Total 820 1015 Output Total 1460 1250 Balance -640 -569 Result Diagrams: 01/08/18 03:55 01/08/18 03:55 <Debby Eduardo - Last Filed: 01/10/18 15:34> Phys Exam - Physical Examination Constitutional: NAD Respiratory: no wheezing, clear to auscultation bilateral distant due to body habitus Gastrointestinal: soft, non-tender, positive bowel sounds trace edema Psychiatric: normal affect, A&O x 3 Deviation from normal: 1.5 cm skin lac right foot between 4th and 5th digits <Rayna Gan - Last Filed: 01/10/18 09:57> Dx/Plan (1) Diabetes mellitus type 2 in obese Code(s): E11.69 - TYPE 2 DIABETES MELLITUS WITH OTHER SPECIFIED COMPLICATION; E66.9 - OBESITY, UNSPECIFIED Status: Acute (2) Elevated brain natriuretic peptide (BNP) level Code(s): R79.89 - OTHER SPECIFIED ABNORMAL FINDINGS OF BLOOD CHEMISTRY Status : Acute (3) Elevated transaminase level Code(s): R74.0 - NONSPEC ELEV OF LEVELS OF TRANSAMNS & LACTIC ACID DEHYDRGNSE Status: Acute (4) Lower extremity edema Code(s): R60.0 - LOCALIZED EDEMA Status: Acute (5) Fall Code(s): W19.XXXA - UNSPECIFIED FALL, INITIAL ENCOUNTER Status: Acute (6) Musculoskeletal chest pain Code(s): R07.89 - OTHER CHEST PAIN Status: Acute (7) Risk for falls Code(s): Z91.81 - HISTORY OF FALLING Status: Acute - Plan Plan: Lower extremity edema likely 2/2 chronic venous stasis - Venous stasis dermatitis vs cellulitis vs CHF - Venous US and procal neg - CXR no acute cardiopulm process - Echo: nml, EF 60-65% - s/p lasix 20mg IV x2 - Will treat with 7 days of Bactrim although low suspicion for cellulitis - Compression stockings, elevate legs often Nondisplaced Transverse Fracture of the right 5th phalanx - hyperextention and lac when landing on foot "wrong" overnight - Morphine overnight for pain relief - Will d/c with Tramadol for pain relief - Laceration was repaired using sterile gloves, betadine, 5cc 1% epi w/o lidocaine and 3-0 Prolene using simple interrupted technique. <5cc EBL. Pt tolerated procedure well. Bilateral Leg Pain - Likely neuropathic pain, has been responding to Gabapentin well - Patient will likely benefit from increased dose, Will increase Gabapentin from 300mg to 400mg TID Elevated D-Dimer - Asymptomatic - Coag studies show pt may be hypercoagulable - CTA 01/09: Questionable eccentric filling defect potentially artifactual but a tiny indeterminate age PE is not excluded, likely of no clinical significance. - Pt asymptomatic, will discuss findings with him - Will likely not treat this pt with anticoagulation as risks of anticoagulation likely outweigh any benefit HTN - Continue HCTZ 12.5 Elevated BNP - Indeterminate level - EKG not suspicious for recent MA - Echo with nml findings Elevated transaminases - Asymptomatic - Consider Fatty liver - Recommend outpt workup Hx of DMII - HgbA1c: 6.6% - mild SSI - ACHS accuchecks Code Status: FULL DVT ppx: Lovenox <Rayna Gan - Last Filed: 01/10/18 09:57> Attending Addendum - Attending Addendum Date/Time: 01/10/18 7258 I personally evaluated the patient and discussed the management with Dr. Gan. I agree with the History, Examination, Assessment and Plan documented above with any addition or exceptions noted below. The patient slipped and has fractured his fifth toe. His toe lac has been sutured. Echo was normal. Will discharge home. rEcommend compression stockings. <Debby Eduardo - Last Filed: 01/10/18 15:34>
[2018-01-10] MEDS ORDERED: Lidocaine 1% (PF) 30 ML VIAL SC SCH (06:30)
[2018-01-10] MEDS ORDERED: Lidocaine 1% (PF) 30 ML VIAL ONE (06:32)
[2018-01-10] MEDS: Hydrochlorothiazide 25 MG TAB PO SCH (07:52)
[2018-01-10] MEDS: Enoxaparin Sodium 40 MG/0.4 ML SYRINGE SC SCH (07:52)
[2018-01-10] MEDS: Gabapentin 400 MG CAP PO SCH ×2 (07:52→14:32)
[2018-01-10] MEDS: Sulfameth/Trimethoprim DS 800-160mg TAB PO SCH (07:53)
[2018-01-10] MEDS: traMADol HCl 50 MG TAB PO PRN (07:53)
[2018-01-10] MEDS ORDERED: Lidocaine 1% PF 5 ML VIAL ONE (07:56)
--- NOTE | 2018-01-10 09:03 | RAD ---
RIGHT FOOT RADIOGRAPHS 3 VIEWS: DATE: 01/10/18. PROVIDED CLINICAL HISTORY: Right foot pain status post injury. FINDINGS: Comparison 01/08/18. Remote fracture of 5th metatarsal is redemonstrated. Transversely oriented nond isplaced fracture is noted involving the proximal aspect of the 5th proximal phalanx, new with respec t to the prior study. Alignment appears unchanged. Joint spaces appear preserved. IMPRESSION: Nondisplaced transverse oriented 5th digit proximal phalangeal fracture. POS: KENNY
[2018-01-10] MEDS ORDERED: Ibuprofen 800 MG TAB PO SCH (11:00)
[2018-01-10] MEDS: Acetaminophen 500 MG TAB PO SCH ×2 (11:01→17:29)
[2018-01-10 18:14] VITALS: BP 150/95; TEMP 97.6
--- NOTE | 2018-01-11 02:28 | DIS-2 ---
DATE OF ADMISSION: 01/08/2018 DATE OF DISCHARGE: 01/10/2018 RESIDENT: Rayna Gan, PGY1. ADMITTING ATTENDING: Lenny Day M.D. DISCHARGE ATTENDING: Debby Eduardo M.D. CONSULTATIONS: None. PROCEDURES: 1. Chest x-ray, no acute cardiopulmonary abnormality. 2. Venogram, no thrombus of the left and right lower extremity, deep venous system. 3. Foot x-ray, no acute fracture or subluxation. Diffuse swelling of the left foot. 4. Foot x-ray, soft tissue swelling and arthritic changes of the left foot, overall fairly stable exam. 5. Chest thoracic CTA, questionable tiny eccentric filling defect with an anterior proximal segment left lower lobe pulmonary arteries, this could potentially be artifact, but tiny indeterminate age. JAIRO was not excluded. No additional filling defects to suggest additional PE, likely no clinical significant. Minimal peripheral interstitial thickening at each lung base which is nonspecific. 6. Echocardiogram: Normal with EF 60-65%. 7. Foot x-ray nondisplaced transverse oriented fifth digit proximal phalangeal fracture. PRIMARY DIAGNOSIS: Chronic venous stasis. SECONDARY DIAGNOSES: 1. Nondisplaced transverse fracture of the right sphenoid. 2. Elevated D-dimer. 3. Hypertension. 4. Elevated BNP. 5. Elevated transaminases. 6. History of type 2 diabetes. DISCHARGE MEDICATIONS: 1. Gabapentin 400 mg t.i.d. 2. Tylenol #3, 15 tablets p.o. q.6 hours p.r.n. 3. Ibuprofen 800 mg q.8 hours p.r.n. DISCONTINUED MEDICATIONS: None. HISTORY OF PRESENT ILLNESS AND HOSPITAL COURSE: Mr. Mg is a 47-year-old male who presented with bilateral leg swelling, redness and pain of 2 days' duration. Procal was negative making cellulitis less likely. Echocardiogram showed a normal EF and no diastolic dysfunction ruling out congestive heart failure. Venous ultrasound was negative for DVT and chest x-ray showed no acute cardiopulmonary process. He was treated with 20 mg IV Lasix for 2 days and elevation of legs above heart with great improvement of his leg edema and pain. He was noted to have shooting pain from his heel. It was very bothersome to him. He was started on gabapentin 400 mg t.i.d. He was started on 300 mg of gabapentin titrated up to 400 mg t.i.d. with almost complete resolution of symptoms. He has been treated for suspected cellulitis with Zosyn , but was not discharged on antibiotics due to no clinical suspicion for cellulitis. He was recommended to wear compression stockings and elevate legs often to prevent recurrent. While over his last night of stay while getting out of the bed, he landed on his foot, "arm" and hyperextended his right distal phalanx. He received a dose of morphine for pain relief and x-ray was performed showing nondisplaced transverse fracture of the right distal phalanx. There was a 1.5 cm laceration that was repaired using 3-0 Prolene simple interrupted sutures. He had an elevated D-dimer on admission and coag studies showed the patient may be hypercoagulable with a D-dimer of 0.57, protein C chromogenic at 63 (low), functional antithrombin III 70 (low), factor A 302.8 (high). Patient was asymptomatic, denying shortness of breath and chest pain. Due to his immobility and concern for PE, CTA was performed showing a questionable potentially artifactual tiny intermediate HPE that could not be excluded, likely of no clinical significance. Last night, the patient fell resulting in reported significant blood loss. After discussing with patient, the risks versus benefit of using an anticoagulation. It was deemed that the risks of anticoagulation outweigh the benefit. He was hypertensive and started on hydrochlorothiazide at 12.5, is adequately treated against hypertension. He had an elevated BNP that was at indeterminate level.CXR with no acute abnormalities. He was also noted to have elevated transaminases asymptomatic. I recommended an outpatient workup for this. Patient reports being "cured" of his type 2 diabetes, hemoglobin A1c is 6.6% at admission. This was controlled with sliding scale and ACHS Accu-Cheks, this will need to be followed up as an outpatient. DISPOSITION: Stable. DISCHARGE INSTRUCTIONS: 1. Location: Home. 2. Diet: Diabetic. 3. Activity: No restrictions. 4. Follow up with [facility] within 3-7 days. MIA
[2018-01-14 02:06] LABS: Activated Protein C Resistance 2.6 ratio (.)
== END 2018-01-10 18:42 | disposition home or self-care (01) | DRG 303 ==
LOC: ERS 12:44 → T4-B 19:06
PROVIDERS: ADMIT Family Medicine; ATTEND Family Medicine
PROC: 0HQMXZZ Repair Right Foot Skin, External Approach (ICD-10-PCS; principal; 2018-01-10)
DX: I87.8 Other specified disorders of veins (principal); Z68.41 Body mass index [BMI] 40.0-44.9, adult; E11.9 Type 2 diabetes mellitus without complications; I10 Essential (primary) hypertension; M41.9 Scoliosis, unspecified; Z88.0 Allergy status to penicillin; F17.220 Nicotine dependence, chewing tobacco, uncomplicated; R74.0 Nonspecific elevation of levels of transaminase and lactic acid dehydrogenase [LDH]; R79.89 Other specified abnormal findings of blood chemistry; E66.9 Obesity, unspecified; R07.89 Other chest pain; S91.119A Laceration without foreign body of unspecified toe without damage to nail, initial encounter; X58.XXXA Exposure to other specified factors, initial encounter; Y92.231 Patient bathroom in hospital as the place of occurrence of the external cause; S92.911A Unspecified fracture of right toe(s), initial encounter for closed fracture
CPT/HCPCS: 36415; 71046; 71275; 80053; 81003; 81015; 81240; 81241; 82553; 83036; 83090; 83605; 83880; 84145; 84484; 85025; 85240; 85300; 85303; 85305; 85307; 85379; 85598; 85652; 85730; 86140; 86147; 87040; 93306; 93970; 96365; 96368; 96375; A4216; J1650; J1885; J1940; J2001; J2270; J3370; J3490